=== PATIENT | male | born 1965 | race Caucasian/White ===

== ENCOUNTER 2016-11-06 08:31 | Emergency (ER) | payer OTHER ==
[~2016-11-06] VITALS: Ht 182.9 cm; Wt 106.6 kg
[2016-11-06] MEDS ORDERED: SODIUM CHLORIDE 0.9% 1,000 ML IV ONE (09:14)
[2016-11-06] MEDS ORDERED: ONDANSETRON HCL 4 MG/2 ML VIAL IV ONE ×2 (09:15→12:00)
[2016-11-06] MEDS ORDERED: HYDROmorphone HCL 2 MG/ML VL IV ONE ×2 (09:15→12:00)
[2016-11-06 09:52] LABS: Urine Blood 1+ /uL (Negative); Urine Color Brown (Yellow); Urine Glucose Normal (Normal); Urine Ketone 1+ (Negative); Urine Mucus FEW (None Seen); Urine Nitrite Negative (Negative); Urine RBC 3 /hpf (0 - 3); Urine Squamous Epithelial Cell FEW /hpf (<5); Urine pH 5.5 (5.0-8.0)
[2016-11-06 09:58] LABS: Urine Bilirubin Negative (Negative)
[2016-11-06 09:58] LABS: Basophils # (auto) 0 uL; Basophils % (auto) 0.2 % (0.0-2.0); Eosinophils # (auto) 0 uL; Hematocrit 50.1 % (41.0-53.0); Hemoglobin 17.4 g/dL (13.5-17.5); Lymphocytes # (auto) 0.5 uL; Lymphocytes % (auto) 2.8 % (10.0-50.0); Mean Corpuscular Hgb Conc. 34.7 g/dL (32.0-36.0); Mean Corpuscular Volume 92.4 fL (80.0-100.0); Mean Platelet Volume 7.9 fL (6.9-10.8); Monocytes # (auto) 0.8 uL; Monocytes % (auto) 4.3 % (0.0-12.0); Neutrophils # (auto) 18.1 uL; Neutrophils % (auto) 92.7 % (37.0-80.0); Nucleated Red Blood Cells % 0.1 %; Platelet Count (auto) 212 10^3/uL (140-450); Red Cell Distribution Width 13.1 % (11.8-14.3); White Blood Cell 19.5 10^3/uL (4.4-10.8)
[2016-11-06 10:06] LABS: Albumin 3.2 g/dL (3.4-5.0); BUN/Creatinine Ratio 13.3; Potassium 4.1 mmol/L (3.5-5.1)
[2016-11-06 10:09] LABS: Bilirubin, Total 4.3 mg/dL (0.2-1.0); Total Protein 8.2 g/dL (6.4-8.2)
[2016-11-06 12:55] VITALS: BP 165/98
== END 2016-11-06 13:13 | disposition short-term general hospital (02) ==
LOC: EDUNIT# 08:31 → ER 08:31 → EDBD 08:31 → ER 13:13
DX: R10.13 Epigastric pain (principal); R31.9 Hematuria, unspecified; J90 Pleural effusion, not elsewhere classified; Z90.49 Acquired absence of other specified parts of digestive tract; Z87.442 Personal history of urinary calculi
CPT/HCPCS: 36415; 51702; 71010; 74176; 80053; 81001; 82150; 83690; 85025; 93005; 94761; 96361; 96374; 96375; 96376; 99285; J1170; J2405